=== PATIENT | male | born 1955 | race Caucasian/White ===

== ENCOUNTER → 2017-06-10 | Outpatient (CLI) | payer BC ==
[2011-12-28 08:23] VITALS: BP 160/102
[~2017-06-10] MED LIST: HYDROCODONE BIT1 T43 PO; MEDI-FIRST ASP325 MG PO; SIMVASTATIN40 MG PO
== END ==
LOC: RAD 08:48
DX: M25.561 Pain in right knee (principal); M15.9 Polyosteoarthritis, unspecified; I10 Essential (primary) hypertension; E78.2 Mixed hyperlipidemia; R73.01 Impaired fasting glucose; Z12.5 Encounter for screening for malignant neoplasm of prostate

== ENCOUNTER → 2017-11-28 | Outpatient (CLI) | payer BC ==
[2011-12-28 08:23] VITALS: BP 160/102
== END ==
LOC: LAB 08:56
DX: R73.01 Impaired fasting glucose (principal)

== ENCOUNTER → 2017-12-24 | Outpatient (CLI) | payer BC ==
[2011-12-28 08:23] VITALS: BP 160/102
[2017-12-24 14:28] LABS: BUN/CREATININE RATIO 17.2 (6.0-26.0); CALCIUM 9.5 mg/dL (8.4-10.2)
== END ==
LOC: LAB 14:00
PROVIDERS: Nurse Practitioner Family
DX: M79.674 Pain in right toe(s) (principal)

== ENCOUNTER → 2018-02-20 | Outpatient (CLI) | payer BC ==
[2011-12-28 08:23] VITALS: BP 160/102
[~2018-02-20] VITALS: Ht 180.3 cm; Wt 122.7 kg
[2018-02-20 12:12] LABS: HEMATOCRIT 52.6 % (42.0-52.0); HEMOGLOBIN 17.4 g/dL (13.5-18.0); MEAN PLATELET VOLUME 10.8 fl (7.4-10.4); RED BLOOD COUNT 5.56 M/mm3 (4.20-5.60); RED CELL DISTRIBUTION WIDTH 13.4 % (11.5-14.5); WHITE BLOOD COUNT 3.4 K/mm3 (4.8-10.8)
[2018-02-20 12:26] LABS: D-DIMER 0.36 mg/L FEU (0.15-0.50)
== END ==
LOC: AMSURD 11:12
PROVIDERS: Family Medicine
DX: R07.9 Chest pain, unspecified (principal); R05 Cough

== ENCOUNTER → 2018-02-27 | Outpatient (CLI) | payer BC ==
[2011-12-28 08:23] VITALS: BP 160/102
== END ==
LOC: LAB 09:19
DX: R73.01 Impaired fasting glucose (principal)

== ENCOUNTER → 2018-04-02 | Outpatient (CLI) | payer BC ==
[2011-12-28 08:23] VITALS: BP 160/102
[2018-04-02 09:02] LABS: BASO # 0.1 (0.02-0.10); EOS # 0.4 (0.04-0.40); HEMATOCRIT 52.2 % (42.0-52.0); HEMOGLOBIN 17.3 g/dL (13.5-18.0); LYMPH# 1.2 (1.50-4.00); MEAN CELL VOLUME 96 fl (78-100); MEAN CORPUSCULAR HEMOGLOBIN 32 pg (27-31); MEAN CORPUSCULAR HGB CONC 33 g/dL (33-37); MEAN PLATELET VOLUME 10.1 fl (7.4-10.4); MONO # 0.5 (0.20-0.80); NEU # 3.6 (1.40-6.50); PLATELET COUNT 174 K/mm3 (130-400); RED BLOOD COUNT 5.42 M/mm3 (4.20-5.60); RED CELL DISTRIBUTION WIDTH 14.3 % (11.5-14.5); WHITE BLOOD COUNT 5.8 K/mm3 (4.8-10.8)
[2018-04-02 09:12] LABS: ALBUMIN 4.4 g/dL (3.5-5.0); BUN/CREATININE RATIO 26.1 (6.0-26.0); CALCIUM 9.9 mg/dL (8.4-10.2); POTASSIUM 4.7 mmol/L (3.6-5.0); TOTAL BILIRUBIN 0.5 mg/dL (0.2-1.3)
[2018-04-02 09:29] LABS: EOS % 7.4 % (0.0-4.0)
== END ==
LOC: LAB 08:45
PROVIDERS: Nurse Practitioner Family
DX: Z00.00 Encounter for general adult medical examination without abnormal findings (principal); Z12.5 Encounter for screening for malignant neoplasm of prostate; E78.2 Mixed hyperlipidemia; R73.01 Impaired fasting glucose; I10 Essential (primary) hypertension

== ENCOUNTER → 2018-04-11 | Outpatient (CLI) | payer BC ==
[2011-12-28 08:23] VITALS: BP 160/102
== END ==
LOC: CARDREHAB 07:37 → CARDLAB 14:23
DX: R06.09 Other forms of dyspnea (principal); Z82.49 Family history of ischemic heart disease and other diseases of the circulatory system; Z72.0 Tobacco use
CPT/HCPCS: A9500

== ENCOUNTER → 2019-04-02 | Outpatient (CLI) | payer BC ==
[2011-12-28 08:23] VITALS: BP 160/102
[2019-04-02 07:34] LABS: BASO # 0.1 (0.02-0.10); EOS # 0.1 (0.04-0.40); EOS % 2.4 % (0.0-4.0); HEMATOCRIT 54.9 % (42.0-52.0); HEMOGLOBIN 18.4 g/dL (13.5-18.0); MEAN CELL VOLUME 96 fl (78-100); MEAN CORPUSCULAR HEMOGLOBIN 32 pg (27-31); MEAN CORPUSCULAR HGB CONC 34 g/dL (33-37); MONO # 0.4 (0.20-0.80); NEU # 3.8 (1.40-6.50); PLATELET COUNT 145 K/mm3 (130-400); RED BLOOD COUNT 5.71 M/mm3 (4.20-5.60); RED CELL DISTRIBUTION WIDTH 13.7 % (11.5-14.5); WHITE BLOOD COUNT 5.4 K/mm3 (4.8-10.8)
[2019-04-02 09:45] LABS: CALCIUM 10.5 mg/dL (8.8-10.0); POTASSIUM 4.2 mmol/L (3.5-5.1); TOTAL PROTEIN 7.9 g/dL (6.2-8.1)
[2019-04-02 09:47] LABS: TOTAL BILIRUBIN 0.8 mg/dL (0.2-1.2)
[2019-04-02 11:25] LABS: ALBUMIN 4.5 g/dL (3.4-4.8)
== END ==
LOC: LAB 07:03
PROVIDERS: Physician Assistant
DX: I10 Essential (primary) hypertension (principal); J30.2 Other seasonal allergic rhinitis; M15.9 Polyosteoarthritis, unspecified; E78.5 Hyperlipidemia, unspecified; G47.33 Obstructive sleep apnea (adult) (pediatric); E11.9 Type 2 diabetes mellitus without complications

== ENCOUNTER → 2020-01-05 | Outpatient (CLI) | payer BC ==
[2011-12-28 08:23] VITALS: BP 160/102
[2020-01-05 08:54] LABS: POTASSIUM 4.1 mmol/L (3.5-5.1)
[2020-01-05 08:55] LABS: CALCIUM 10.1 mg/dL (8.3-10.5)
== END ==
LOC: LAB 08:36
PROVIDERS: Physician Assistant
DX: I10 Essential (primary) hypertension (principal); E11.9 Type 2 diabetes mellitus without complications; G47.33 Obstructive sleep apnea (adult) (pediatric); M15.9 Polyosteoarthritis, unspecified; E78.5 Hyperlipidemia, unspecified

== ENCOUNTER 2021-03-15 17:19 | Emergency (ER) | payer OTHER ==
[2021-03-15 18:08] LABS: PROTHROMBIN TIME 10.5 SECONDS (9.0-12.0)
[2021-03-15 19:40] VITALS: BP 117/86
== END 2021-03-15 19:40 | disposition short-term general hospital (02) ==
LOC: ED 17:19
PROVIDERS: Physician Assistant
DX: E11.10 Type 2 diabetes mellitus with ketoacidosis without coma (principal); I48.91 Unspecified atrial fibrillation; E87.5 Hyperkalemia; N28.9 Disorder of kidney and ureter, unspecified; I10 Essential (primary) hypertension; E78.5 Hyperlipidemia, unspecified; F17.210 Nicotine dependence, cigarettes, uncomplicated; Z20.822 Contact with and (suspected) exposure to COVID-19; Z79.84 Long term (current) use of oral hypoglycemic drugs; Z79.899 Other long term (current) drug therapy
CPT/HCPCS: J1650; J1815; J7030

== ENCOUNTER → 2021-03-15 | Outpatient (CLI) | payer OTHER ==
[2020-04-21 12:54] VITALS: BP 130/84
[~2021-03-15] MED LIST changes: +ACETAMINOPHEN-H1 TA2 PO; +ATORVASTATIN CA20 MG PO; +CELEBREX 1100 MG/CAP PO; +CYCLOBENZAPRINE10 M1 PO; +GLUCOPHAGE PO; +HYDROCHLOROTHIA1 T15 PO; +NORCO 325 MG-51 TA1 PO
[2021-03-15 16:39] LABS: HEMATOCRIT 53.2 % (42.0-52.0); HEMOGLOBIN 17.8 g/dL (13.5-18.0); MEAN CELL VOLUME 92 fl (78-100); MEAN CORPUSCULAR HEMOGLOBIN 31 pg (27-31); MEAN CORPUSCULAR HGB CONC 34 g/dL (33-37); MEAN PLATELET VOLUME 11.2 fl (7.4-10.4); PLATELET COUNT 144 K/mm3 (130-400); RED BLOOD COUNT 5.79 M/mm3 (4.20-5.60); RED CELL DISTRIBUTION WIDTH 13.3 % (11.5-14.5); WHITE BLOOD COUNT 7.2 K/mm3 (4.8-10.8)
[2021-03-15 16:48] LABS: ALBUMIN 4.1 g/dL (3.4-4.8); POTASSIUM 5.5 mmol/L (3.5-5.1); SODIUM 126 mmol/L (136-145)
[2021-03-15 16:49] LABS: CALCIUM 9.9 mg/dL (8.3-10.5)
[2021-03-15 16:51] LABS: TOTAL PROTEIN 7.5 g/dL (6.2-8.1)
[2021-03-15 16:52] LABS: CARBON DIOXIDE 22 mmol/L (23-31); TOTAL BILIRUBIN 0.6 mg/dL (0.2-1.2)
[2021-03-15 16:56] LABS: AST-SGOT 16 U/L (5-34)
[2021-03-15 16:57] LABS: ALT/SGPT 27 U/L (0-55)
[2021-03-15 17:18] LABS: BAND 2 % (0-10); LYMPHOCYTE 8 % (20-51); MONOCYTE 13 % (3-10); NEUTROPHILS 76 % (42-75); TARGET CELLS 1+
[2021-03-15 17:21] LABS: GLUCOSE 588 mg/dL (75-110)
[2021-03-15 18:02] LABS: TROPONIN-I < 0.03 ng/mL (<0.030)
== END ==
LOC: LAB 16:22
PROVIDERS: Physician Assistant
DX: Z12.5 Encounter for screening for malignant neoplasm of prostate (principal); I48.91 Unspecified atrial fibrillation; I21.9 Acute myocardial infarction, unspecified; I10 Essential (primary) hypertension; E78.2 Mixed hyperlipidemia; K90.9 Intestinal malabsorption, unspecified; E11.9 Type 2 diabetes mellitus without complications

== ENCOUNTER → 2021-05-12 | Outpatient (CLI) | payer OTHER ==
[2021-05-12 11:39] LABS: POTASSIUM 4.4 mmol/L (3.5-5.1)
[2021-05-12 11:40] LABS: CALCIUM 9.3 mg/dL (8.3-10.5)
== END ==
LOC: RAD 11:10
PROVIDERS: Physician Assistant
DX: E04.2 Nontoxic multinodular goiter (principal)

== ENCOUNTER → 2021-08-25 | Outpatient (CLI) | payer MEDICARE, OTHER ==
[2021-08-25 09:19] LABS: POTASSIUM 5.3 mmol/L (3.5-5.1)
[2021-08-25 09:20] LABS: CALCIUM 10.2 mg/dL (8.3-10.5)
[2021-09-04 22:32] LABS: GLUTAMIC ACID DECARB 65 AB AMS
== END ==
LOC: LAB 08:28
DX: E11.65 Type 2 diabetes mellitus with hyperglycemia (principal); Z79.4 Long term (current) use of insulin

== ENCOUNTER → 2022-09-24 | Day surgery (SDC) | payer MEDICARE, OTHER | LOC: MSO 07:35 | DX: Z12.11 Encounter for screening for malignant neoplasm of colon (principal); G47.33 Obstructive sleep apnea (adult) (pediatric); F17.210 Nicotine dependence, cigarettes, uncomplicated | CPT/HCPCS: 00812; J2704; J7120 ==

== ENCOUNTER → 2023-09-05 | Outpatient (CLI) | payer MEDICARE, OTHER ==
[2023-09-05 07:44] LABS: BASO # 0.05 K/mm3 (0.02-0.10); EOS # 0.16 K/mm3 (0.04-0.40); EOS % 3.2 % (0.0-4.0); HEMATOCRIT 48.4 % (42.0-52.0); HEMOGLOBIN 15.6 g/dL (13.5-18.0); LYMPH# 1.07 K/mm3 (1.50-4.00); MEAN CELL VOLUME 103 fl (78-100); MEAN CORPUSCULAR HEMOGLOBIN 33 pg (27-31); MEAN CORPUSCULAR HGB CONC 32 g/dL (33-37); MEAN PLATELET VOLUME 9.4 fl (7.4-10.4); MONO # 0.42 K/mm3 (0.20-0.80); NEU # 3.32 K/mm3 (1.40-6.50); PLATELET COUNT 146 K/mm3 (130-400); RED BLOOD COUNT 4.69 M/mm3 (4.20-5.60); RED CELL DISTRIBUTION WIDTH 13.2 % (11.5-14.5)
[2023-09-05 07:48] LABS: ALBUMIN 4.1 g/dL (3.4-4.8); POTASSIUM 5.7 mmol/L (3.5-5.1)
[2023-09-05 07:49] LABS: CALCIUM 9.4 mg/dL (8.3-10.5)
[2023-09-05 07:50] LABS: TOTAL PROTEIN 6.9 g/dL (6.2-8.1)
[2023-09-05 07:52] LABS: TOTAL BILIRUBIN 0.4 mg/dL (0.2-1.2)
[2023-09-05 16:29] LABS: HEPATITIS C VIRUS ANTIBODY Negative (Negative)
== END ==
LOC: LAB 07:19
PROVIDERS: Physician Assistant
DX: Z00.00 Encounter for general adult medical examination without abnormal findings (principal); Z23 Encounter for immunization; Z13.6 Encounter for screening for cardiovascular disorders; Z13.820 Encounter for screening for osteoporosis; Z13.29 Encounter for screening for other suspected endocrine disorder; Z11.59 Encounter for screening for other viral diseases; Z12.5 Encounter for screening for malignant neoplasm of prostate; K90.9 Intestinal malabsorption, unspecified; I48.91 Unspecified atrial fibrillation; I10 Essential (primary) hypertension; G89.29 Other chronic pain; M15.9 Polyosteoarthritis, unspecified; E78.2 Mixed hyperlipidemia; G47.33 Obstructive sleep apnea (adult) (pediatric); J30.2 Other seasonal allergic rhinitis; E04.1 Nontoxic single thyroid nodule; R53.83 Other fatigue; R68.83 Chills (without fever); Z72.0 Tobacco use

== ENCOUNTER → 2023-09-18 | Outpatient (CLI) | payer MEDICARE, OTHER ==
[2023-09-18 08:05] LABS: CALCIUM 9.5 mg/dL (8.3-10.5)
== END ==
LOC: LAB 07:36
PROVIDERS: Physician Assistant
DX: E87.5 Hyperkalemia (principal)

== ENCOUNTER → 2023-12-27 | Outpatient (CLI) | payer MEDICARE, OTHER | LOC: RAD 07:48 | DX: Z13.6 Encounter for screening for cardiovascular disorders (principal) ==

== ENCOUNTER → 2024-09-10 | Outpatient (CLI) | payer MEDICARE, OTHER ==
[2024-09-10 09:28] LABS: BASO # 0.02 K/mm3 (0.02-0.10); EOS % 1.8 % (0.0-4.0); HEMATOCRIT 52.3 % (42.0-52.0); HEMOGLOBIN 17.1 g/dL (13.5-18.0); LYMPH# 0.97 K/mm3 (1.50-4.00); MEAN CELL VOLUME 101 fl (78-100); MEAN CORPUSCULAR HEMOGLOBIN 33 pg (27-31); MEAN CORPUSCULAR HGB CONC 33 g/dL (33-37); MEAN PLATELET VOLUME 9.2 fl (7.4-10.4); MONO # 0.29 K/mm3 (0.20-0.80); NEU # 4.27 K/mm3 (1.40-6.50); PLATELET COUNT 175 K/mm3 (130-400); RED BLOOD COUNT 5.19 M/mm3 (4.20-5.60); RED CELL DISTRIBUTION WIDTH 12.8 % (11.5-14.5); WHITE BLOOD COUNT 5.7 K/mm3 (4.8-10.8)
[2024-09-10 09:38] LABS: ALBUMIN 4.4 g/dL (3.4-4.8)
[2024-09-10 09:39] LABS: CALCIUM 10.1 mg/dL (8.3-10.5)
[2024-09-10 09:41] LABS: TOTAL PROTEIN 7.5 g/dL (6.2-8.1)
[2024-09-10 09:43] LABS: TOTAL BILIRUBIN 0.5 mg/dL (0.2-1.2)
== END ==
LOC: LAB 09:05
PROVIDERS: Physician Assistant
DX: Z12.5 Encounter for screening for malignant neoplasm of prostate (principal); Z13.29 Encounter for screening for other suspected endocrine disorder; I10 Essential (primary) hypertension; E11.9 Type 2 diabetes mellitus without complications; K92.89 Other specified diseases of the digestive system; E78.2 Mixed hyperlipidemia